=== PATIENT | male | born 2000 | race Caucasian/White ===

== ENCOUNTER 2023-09-18 15:11 | Emergency (ER) | payer BC, SELFPAY ==
[2023-09-18 15:07] VITALS: BP 157/100; PULSE 120; RESP 20; TEMP 36.7; O2SAT 97; BMI 30.5
--- NOTE | 2023-09-18 15:11 | CT_ITS ---
PROCEDURE INFORMATION: Exam: CTA Chest With Contrast Exam date and time: 09/18/2023 5:20 PM Age: 23 years old Clinical indication: Pain; Other: Cp; Additional info: Forceful vomiting, concern for esophageal inj, cp TECHNIQUE: Imaging protocol: Computed tomographic angiography of the chest with contrast. Exam focused on the arteries. 3D rendering (Not supervised by radiologist): MIP and/or 3D reconstructed images were created by the technologist. Radiation optimization: All CT scans at this facility use at least one of these dose optimization techniques: automated exposure control; mA and/or kV adjustment per patient size (includes targeted exams where dose is matched to clinical indication); or iterative reconstruction. Contrast material: ISOVUE 370; Contrast volume: 70 ml; Contrast route: INTRAVENOUS (IV); REPORTING DATA: Count of CT and Cardiac NM exams in prior 12 months: This patient has received 0 known CTs and 0 known cardiac nuclear medicine studies in the 12 months prior to the current study. COMPARISON: CT ABDOMEN PELVIS W CON 09/18/2023 5:20 PM FINDINGS: Pulmonary arteries: No evidence of pulmonary embolism. Aorta: Aorta is normal in caliber. Lungs: No evidence of acute airspace consolidation. No pulmonary edema. Pleural spaces: No pneumothorax. No pleural effusion. Heart: No cardiomegaly. No significant pericardial effusion. Mediastinal space: Distal esophageal wall thickening consistent with gastroesophageal reflux esophagitis. No evidence of mediastinal hematoma or mediastinal free air. Lymph nodes: No enlarged lymph nodes by CT criteria. Bones/joints: No acute osseous abnormality. Soft tissues: Unremarkable. IMPRESSION: Distal esophageal wall thickening consistent with gastroesophageal reflux esophagitis. Evaluation for esophageal wall tear or perforation is limited without oral contrast present. If further imaging is desired using oral contrast material, Omnipaque diluted in saline is the safest option in case of potential esophageal leak or aspiration.
--- NOTE | 2023-09-18 15:14 | ECG_ITS ---
APPROVED REPORT Exam: Resting ECG HR:107 bpm ECG Measurements Heart Rate 107 AXES KS 156 P 71 QRSd 98 QRS 73 QT 335 T 48 QTc 398 Conclusion SINUS TACHYCARDIA ABNORMAL RHYTHM ECG UNCONFIRMED REPORT Electronically signed by : Cm Ortega MD 09/18/2023 17:28:33
[2023-09-18 15:20] LABS: Basophils % 0.2 % (0.1-2.0); Eosinophils # 0.1 K/mm3 (0.0-0.4); Eosinophils % 0.5 % (0.1-12.0); Hematocrit 45.2 % (42.0-52.0); Hemoglobin 16.2 g/dL (14.1-18.0); Lymphocytes # 1.1 K/mm3 (0.7-4.5); Lymphocytes % 7.4 % (10-50); Mean Corpuscular HGB Conc 35.9 g/dL (31.8-35.4); Mean Corpuscular Hemoglobin 34.3 pg (27.0-31.2); Mean Corpuscular Volume 95.7 fl (80-94); Mean Platelet Volume 7.6 fl (7.4-10.4); Monocytes # 0.6 K/mm3 (0.1-1.0); Monocytes % 4.1 % (1.7-9.3); Neutrophils # 12.9 K/mm3 (1.8-7.8); Neutrophils % 87.8 % (37.0-80.0); Platelet Count 244 K/mm3 (142-424); Red Blood Count 4.72 M/mm3 (4.60-6.20); Red Cell Distribution Width 13.3 % (11.5-17.5); White Blood Count 14.7 K/mm3 (4.8-10.8)
--- NOTE | 2023-09-18 15:20 | HMH.EDGENADL ---
Discharge Plan Disposition Patient Disposition: Home, Self-Care Condition: Good Prescriptions Prescriptions: New pantoprazole 40 mg tablet,delayed release (DR/EC) 40 mg PO DAILY Qty: 30 0RF ondansetron 4 mg tablet,disintegrating 4 mg PO Q8H PRN (Reason: nausea and vomiting) 5 Days Qty: 12 0RF chlordiazepoxide HCl 25 mg capsule See Rx Instructions .ROUTE .COMPLEX Qty: 15 0RF Rx Instructions: 25 mg orally; Day 1 50mg q6h; Day 2 25mg q6h; Day 3 25mg q12h; Day 4 25mg at night (Rx fifteen 25mg tabs) Referrals Follow up/Referrals: Naty Shelton MD [Primary Care Provider] - See instructions Activity Restrictions/Add. Instructions Additional Instructions/Restrictions: You were evaluated in the emergency department today. We advised that you stay in the hospital, however since you are going home, we sent in prescriptions for you to take. Please pickling grader the prescriptions and take them as prescribed. Return to the emergency department for new or worsening symptoms. Follow-up with your primary care provider right away. Clinical Impressions Clinical Impression: Alcohol withdrawal, Esophagitis Instructions Patient Instructions: DI for Alcohol Use Disorder, DI for Esophagitis Discharge ED Provider: Vale [facility] HPI General Chief complaint: Alcohol Stated complaint: ABD pain Time Seen by Provider: 09/18/23 15:15 History of Present Illness HPI narrative: This patient is a 23-year-old male with a history of chronic alcohol abuse presenting to the emergency department for evaluation with concern for vomiting, chest pain, and alcohol withdrawals. Patient reports that he had been on a 4-day naik in which he had been drinking heavily every day. He states he had previously been on Vivitrol and not drinking. He notes he started vomiting around 2:00 this morning, and the vomiting was very forceful and painful. He notes an initial episode of hematemesis, but notes his emesis has been nonbloody and nonbilious since. He complains of pain with swallowing as well as chest pain. He states it hurts to take a deep breath. He also complains of shakiness, anxiety, diaphoresis, and concerns for alcohol withdrawal. Patient arrived by EMS, who noted that the patient received 500 cc of IV fluids in route. Related Data Previous Rx's Medication Instructions Recorded chlordiazepoxide HCl 25 mg capsule See Rx Instructions .Route 09/18/23 .COMPLEX #15 caps ondansetron 4 mg disintegrating 4 mg PO Q8H PRN nausea and 09/18/23 tablet vomiting 5 days #12 tabs pantoprazole 40 mg tablet,delayed 40 mg PO DAILY #30 tabs 09/18/23 release Allergies Allergy/AdvReac Type Severity Reaction Status Date / Time No Known Allergies Allergy Verified 09/18/23 15:15 [facility] Disclaimer: The information contained in this section may have been updated after the patient was seen, as this information can be updated by other users. Social History (Updated 09/18/23 @ 15:24 by Patricia Valero RN) Smoking Status: Current every day smoker tobacco type: cigarettes alcohol intake: current substance use type: other current occupational status: employed Travel in the last 8 weeks: None ROS Obtained: Yes All systems reviewed & no additional complaints except as documented Physical Exam General General appearance: alert, in no apparent distress and anxious Comment: Anxious appearing, jittery, and tachycardic Head Head exam: atraumatic and normocephalic Eye Eye exam: Present normal appearance, PERRL and EOMI ENT ENT exam: Present mucous membranes dry and normal external ear exam Neck Neck exam: Present normal inspection, full ROM and trachea midline; Absent tenderness or meningismus Chest Chest inspection: Present normal inspection, symmetric chest wall rise and other (No palpable crepitus); Absent tenderness Respiratory Respiratory exam: Present normal lung sounds bilaterally and other (Mild tachy
[2023-09-18 15:22] LABS: MANUAL DIFFERENTIAL MANUAL DIFFERENTIAL (MANUAL DIFF)
[2023-09-18 15:29] LABS: INR 1.07 (0.9-1.1); Prothrombin Time 11.5 seconds (10.1-12.5)
[2023-09-18 15:30] VITALS: BP 152/92; PULSE 112; RESP 11; O2SAT 97
[2023-09-18 15:31] LABS: Lymphocytes % 7 % (10-50); Monocytes % 3 % (2-9); Neutrophils % 90 % (42-76); Platelet Estimate Normal; RBC Morphology Normal; Total Cells Counted 100
[2023-09-18 15:48] LABS: Alanine Aminotransferase 44 U/L (12-78); Albumin Level 4.7 g/dl (3.5-5.0); Albumin/Globulin Ratio 1.5 (1.1-1.8); Alkaline Phosphatase 90 U/L (38-126); Anion Gap 17.8 mEq/L (5-15); Aspartate Amino Transferase 51 U/L (17-59); Bilirubin,Total 0.8 mg/dl (0.2-1.3); Blood Urea Nitrogen 17 mg/dl (9-20); Carbon Dioxide 22 mmol/L (22.0-30.0); Chloride 104 mmol/L (98-107); Creatinine Clearance Estimated 183 mL/min (50-200); Estimated Glomerular Filt Rate 104 ml/min (>60); GFR (African American) 125 ML/MIN (>60); Globulin 3.2 g/dL (1.3-3.2); Glucose 107 mg/dl (74-100); Lipase 47 U/L (23-300); Potassium 3.8 mmoL/L (3.5-5.1); Sodium 140 mmol/L (136-145); Total Protein,Serum 7.9 g/dl (6.3-8.2)
[2023-09-18 16:00] VITALS: BP 148/89; PULSE 103; RESP 14; O2SAT 96
[2023-09-18 16:02] LABS: Ethyl Alcohol < 10 mg/dl (0-10); Lactic Acid 2.4 mmol/L (0.7-2.1); Troponin I < 0.01 ng/ml (0.00-0.034)
--- NOTE | 2023-09-18 16:09 | CT_ITS ---
PROCEDURE INFORMATION: Exam: CT Abdomen And Pelvis With Contrast Exam date and time: 09/18/2023 5:20 PM Age: 23 years old Clinical indication: Abdominal pain; Generalized; Additional info: Abd pain, vomiting TECHNIQUE: Imaging protocol: Computed tomography of the abdomen and pelvis with contrast. Radiation optimization: All CT scans at this facility use at least one of these dose optimization techniques: automated exposure control; mA and/or kV adjustment per patient size (includes targeted exams where dose is matched to clinical indication); or iterative reconstruction. Contrast material: ISOVUE 370; Contrast volume: 70 ml; Contrast route: IV; REPORTING DATA: Count of CT and Cardiac NM exams in prior 12 months: This patient has received 0 known CTs and 0 known cardiac nuclear medicine studies in the 12 months prior to the current study. COMPARISON: CT ANGIO CHEST PE PROTOCOL 09/18/2023 5:20 PM FINDINGS: Liver: Fatty liver. Gallbladder and bile ducts: Hyperattenuating material in the dependent portion of the gallbladder compatible with biliary sludge vs non-calcified gallstones. No pericholecystic inflammatory changes. No intra- or extra-hepatic biliary ductal dilation. Pancreas: Unremarkable. Spleen: Unremarkable. Adrenal glands: Unremarkable. Kidneys and ureters: No renal or ureteral stones. No hydronephrosis. Stomach and bowel: Unremarkable. Appendix: Appendix is visualized and is normal. Intraperitoneal space: No free fluid. No pneumoperitoneum. Vasculature: Unremarkable. Lymph nodes: Unremarkable. Urinary bladder: Unremarkable. Reproductive: Unremarkable. Bones/joints: No evidence of acute osseous abnormality. Soft tissues: Unremarkable. IMPRESSION: 1. No acute findings in the abdomen or pelvis. 2. Gallbladder contains biliary sludge vs non-calcified gallstones. No evidence of acute cholecystitis. 3. Fatty liver.
[2023-09-18 16:30] VITALS: BP 163/95; PULSE 103; RESP 19; O2SAT 97
[2023-09-18 17:00] VITALS: BP 134/79; PULSE 115; RESP 18; O2SAT 94
--- NOTE | 2023-09-18 18:01 | PC.NURSE ---
pt given starry to drink for PO challenge
[2023-09-18 19:16] LABS: Reflex Lactic Add Lactic Reflex
[2023-09-18 19:19] VITALS: BP 135/85; PULSE 103; RESP 17; TEMP 37.2; O2SAT 96
== END 2023-09-18 19:30 | disposition home or self-care (01) ==
PROVIDERS: Emergency Provider Emergency Medicine; PCP Family Medicine
DX: R07.1 Chest pain on breathing (principal); F10.131 Alcohol abuse with withdrawal delirium; K20.90 Esophagitis, unspecified without bleeding; R00.0 Tachycardia, unspecified; R11.10 Vomiting, unspecified; F17.210 Nicotine dependence, cigarettes, uncomplicated
CPT/HCPCS: 71275; 74177; 80053; 83605; 83690; 84484; 85007; 85025; 85610; 93005; 96361; 96374; 96375; 99285; J2405; Q9967

== ENCOUNTER 2023-09-26 22:55 | Emergency (ER) | payer BC, SELFPAY ==
[2023-09-26 22:55] VITALS: BP 148/102; PULSE 106; RESP 16; TEMP 36.8; O2SAT 96; BMI 31.2
[2023-09-26 23:14] VITALS: PULSE 103; O2SAT 95
[2023-09-26 23:15] VITALS: PULSE 102; O2SAT 95
[2023-09-26 23:16] VITALS: BP 132/83; PULSE 101; PULSE 97; RESP 18; O2SAT 93; O2SAT 95
[2023-09-26 23:30] VITALS: BP 134/80; PULSE 100; PULSE 93; RESP 17; TEMP 36.8; O2SAT 95
--- NOTE | 2023-09-26 23:39 | ECG_ITS ---
APPROVED REPORT Exam: Resting ECG HR:103 bpm ECG Measurements Heart Rate 103 AXES PA 157 P 72 QRSd 97 QRS 73 QT 323 T 45 QTc 383 Conclusion SINUS TACHYCARDIA ABNORMAL RHYTHM ECG UNCONFIRMED REPORT Electronically signed by : Cm Ortega MD 09/27/2023 11:42:38
[2023-09-26 23:45] VITALS: BP 133/81; PULSE 96; RESP 21; TEMP 36.8; O2SAT 95
[2023-09-26 23:50] LABS: Chloride 105 mmol/L (98-107); Potassium 3.9 mmoL/L (3.5-5.1); Sodium 139 mmol/L (136-145)
[2023-09-26 23:52] LABS: Alanine Aminotransferase 38 U/L (12-78); Alkaline Phosphatase 81 U/L (38-126); Aspartate Amino Transferase 60 U/L (17-59); Basophils # 0.1 K/mm3 (0-0.2); Basophils % 0.6 % (0.1-2.0); Bilirubin,Total 0.4 mg/dl (0.2-1.3); Blood Urea Nitrogen 14 mg/dl (9-20); Creatinine Clearance Estimated 173 mL/min (50-200); Eosinophils # 0.1 K/mm3 (0.0-0.4); Eosinophils % 1.6 % (0.1-12.0); Estimated Glomerular Filt Rate 92 ml/min (>60); GFR (African American) 111 ML/MIN (>60); Hematocrit 44.6 % (42.0-52.0); Hemoglobin 15.5 g/dL (14.1-18.0); Lymphocytes # 2.3 K/mm3 (0.7-4.5); Lymphocytes % 27.1 % (10-50); Mean Corpuscular HGB Conc 34.8 g/dL (31.8-35.4); Mean Corpuscular Hemoglobin 32.8 pg (27.0-31.2); Mean Corpuscular Volume 94.4 fl (80-94); Mean Platelet Volume 7.8 fl (7.4-10.4); Monocytes # 0.5 K/mm3 (0.1-1.0); Monocytes % 5.5 % (1.7-9.3); Neutrophils # 5.4 K/mm3 (1.8-7.8); Neutrophils % 65.3 % (37.0-80.0); Platelet Count 226 K/mm3 (142-424); Red Blood Count 4.72 M/mm3 (4.60-6.20); Red Cell Distribution Width 13.2 % (11.5-17.5); White Blood Count 8.3 K/mm3 (4.8-10.8)
[2023-09-26 23:53] LABS: Acetaminophen < 10 ug/ml (10-30); Albumin Level 4.5 g/dl (3.5-5.0); Albumin/Globulin Ratio 1.6 (1.1-1.8); Anion Gap 10.9 mEq/L (5-15); Calcium 8.6 mg/dl (8.4-10.2); Carbon Dioxide 27 mmol/L (22.0-30.0); Globulin 2.9 g/dL (1.3-3.2); Glucose 107 mg/dl (74-100); Lipase 113 U/L (23-300); Salicylate < 1.0 mg/dL (2.0-20.0); Total Protein,Serum 7.4 g/dl (6.3-8.2)
[2023-09-26 23:55] LABS: INR 1.01 (0.9-1.1); Prothrombin Time 10.9 seconds (10.1-12.5)
[2023-09-26 23:57] LABS: Ethyl Alcohol 207 mg/dl (0-10)
[2023-09-27] VITALS (30 sets, daily range): BP systolic 109–148; BP diastolic 54–97; PULSE 94–116; RESP 13–20; TEMP 36.7–37; O2SAT 91–97
--- NOTE | 2023-09-27 00:06 | HMH.EDGENADL ---
Discharge Plan Disposition Patient Disposition: Home, Self-Care Condition: Good Prescriptions Prescriptions: No Action pantoprazole 40 mg tablet,delayed release (DR/EC) 40 mg PO DAILY Qty: 30 0RF ondansetron 4 mg tablet,disintegrating 4 mg PO Q8H PRN (Reason: nausea and vomiting) 5 Days Qty: 12 0RF chlordiazepoxide HCl 25 mg capsule See Rx Instructions .ROUTE .COMPLEX Qty: 15 0RF Rx Instructions: 25 mg orally; Day 1 50mg q6h; Day 2 25mg q6h; Day 3 25mg q12h; Day 4 25mg at night (Rx fifteen 25mg tabs) Referrals Follow up/Referrals: Provider,Referral, MD [Primary Care Provider] - See instructions Activity Restrictions/Add. Instructions Additional Instructions/Restrictions: You were evaluated in the emergency department today. Please follow-up with your primary care provider. Use the resources we have provided to you to help follow-up for your alcohol abuse. Return to the emergency department for new or worsening symptoms. Clinical Impressions Clinical Impression: Alcohol intoxication, Alcohol abuse, Diarrhea Instructions Patient Instructions: Alcohol Use Disorder Discharge ED Provider: Vale Hays [facility] HPI General Chief complaint: Psychiatric Symptoms Stated complaint: n/v, suicidal ideations, alcohol use Time Seen by Provider: 09/26/23 23:05 Mode of Arrival: EMS Source of Information: Patient Limitations: No Limitations Description of Symptoms (Recalled from ER Triage Doc. by RN): pt requests help to stop using alcohol, reports everyday use since the age of 18, can drink up to 30 shooters per day, pt also reports several days of lower abd pain and diarrhea, reports only drinking 4 beers today. Per ems pt had stated he had SI thoughts, after speaking with pt, he adimately states he is not suicidal now but had thoughts this am but no plan. History of Present Illness HPI narrative: This patient is a 23-year-old male presenting to the emergency department by EMS after being brought in for public intoxication. According to the patient, he has had issues with alcohol abuse for the last 4 years. He states that he has been drinking daily despite multiple attempts at intervention, including inpatient rehab, Vivitrol shots, and recent evaluation here and prescription for Librium taper. He notes that he has had a few days of lower abdominal cramping and diarrhea as well. He notes that he is only had 4 beers today. He states that he wants to quit drinking, but the cravings are to strong. Given this, he continues to drink. I asked him what it would take to get him to stop drinking, and how he felt that we could help him. He states that he just needs to not be responsible for taking care of his grandmother anymore. Patient denies suicidal ideation, homicidal ideation, hallucinations, or other concerns. He denies any anxiety, tremulousness, or other issues that would suggest alcohol withdrawals. He has noticed that the patient was stable in route with no concerns or complaints specifically. Related Data Previous Rx's Medication Instructions Recorded chlordiazepoxide HCl 25 mg capsule See Rx Instructions .Route 09/18/23 .COMPLEX #15 caps ondansetron 4 mg disintegrating 4 mg PO Q8H PRN nausea and 09/18/23 tablet vomiting 5 days #12 tabs pantoprazole 40 mg tablet,delayed 40 mg PO DAILY #30 tabs 09/18/23 release Allergies Allergy/AdvReac Type Severity Reaction Status Date / Time No Known Allergies Allergy Verified 09/18/23 15:15 [facility] Disclaimer: The information contained in this section may have been updated after the patient was seen, as this information can be updated by other users. Social History Smoking Status: Current every day smoker tobacco type: cigarettes alcohol intake: current substance use type: other current occupational status: employed Travel in the last 8 weeks: None ROS Obtained:
--- NOTE | 2023-09-27 01:26 | PC.NURSE ---
Patient is pending discharge at this time. Provider Dr. Hays, does not feel that patient is a current danger to himself or others. One on one observation is being discontinued.
--- NOTE | 2023-09-27 01:41 | PC.NURSE ---
Attempted to contact patient's mother per patient request. Luann [phone]. No answer x 2, left voicemail for return call.
--- NOTE | 2023-09-27 01:55 | PC.NURSE ---
Patient reports nausea at this time. Provider notified.
--- NOTE | 2023-09-27 04:54 | PC.NURSE ---
Mother returned called to check on patient status, patient verbally agreed to allow nursing staff to update mother. Spoke at length with mother about patient status and about resources that would be sent with patient information at discharge. Patient's mother states that she will be able to have someone come pick him up around 0700. Updated patient at this time.
--- NOTE | 2023-09-27 06:59 | PC.NURSE ---
report given to shoaib orellana
--- NOTE | 2023-09-27 07:15 | PC.NURSE ---
Breakfast tray received for pt. He did not want his tray at this time.
--- NOTE | 2023-09-27 07:28 | PC.NURSE ---
Rounded on pt. Advised he was nauseous and his stomach was hurting. Dr. Hays and Mario Carmona RN notified.
--- NOTE | 2023-09-27 07:36 | PC.NURSE ---
Spoke with pt mother she advised, I'm at work right now and won't be able to come get him until later. Around 9. Updated pt at this time. Pt advised he would like to speak with the doctor.
--- NOTE | 2023-09-27 07:37 | PC.NURSE ---
Dr. Armstrong at BS to speak with pt
--- NOTE | 2023-09-27 08:19 | PC.NURSE ---
Pt medicated per MAR. urine sample submitted to lab for UDS. Pt reports he fell asleep briefly and woke up screaming, I'm not sure if you heard me . Dc SRNA 1 to 1 sitter and I at bedside. Pt has been awake and talking to us regarding his trouble sleeping.
[2023-09-27 08:21] LABS: Magnesium 1.9 mg/dl (1.6-2.3)
[2023-09-27 08:22] LABS: Ethyl Alcohol 31 mg/dl (0-10)
[2023-09-27 08:38] LABS: Barbiturates Screen,Urine Negative ng/ml (<200)
[2023-09-27 08:39] LABS: Benzodiazepines Screen,Urine Positive ng/ml (<200)
[2023-09-27 08:40] LABS: Amphetamine/Metha Screen,Urine Negative ng/ml (<1000); Cannabinoid Screen,Urine Positive ng/ml (<50)
[2023-09-27 08:41] LABS: Cocaine Screen,Urine Negative ng/ml (<300)
[2023-09-27 08:42] LABS: Methadone Screen,Urine Negative ng/ml (<300); Opiate Screen,Urine Negative ng/ml (<300)
[2023-09-27 08:43] LABS: Phencyclidine Screen,Urine Negative ng/ml (<25)
--- NOTE | 2023-09-27 08:53 | PC.NURSE ---
Spoke with Rita at [facility]. She advised to fax pt information for her to review and then she would give us a call back. Pt information faxed to [phone]
--- NOTE | 2023-09-27 08:59 | PC.NURSE ---
Received fax confirmation that pt information went through.
--- NOTE | 2023-09-27 09:11 | PC.NURSE ---
Rounded on pt. No needs or complaints voiced. Pt resting with eyes close. Respirations even and unlabored. Staff remains at [facility] for .
--- NOTE | 2023-09-27 09:34 | PC.NURSE ---
Pt on phone speaking with Rita at [facility]
--- NOTE | 2023-09-27 10:20 | PC.NURSE ---
Pt mother at at this time. Pt mother updated on current POC and that we are waiting for call back from [facility]. Pt states, I would really rather go home Pt mother voiced to pt that she wants him to get help. Advised pt and mother I would have Dr. Armstrong come in to speak with them.
--- NOTE | 2023-09-27 10:27 | PC.NURSE ---
Dr. Armstrong at to speak with pt and pt mother
--- NOTE | 2023-09-27 10:37 | PC.NURSE ---
Rita from [facility] called back to advise pt had been accepted to [facility]
--- NOTE | 2023-09-27 11:07 | PC.NURSE ---
Called report to [facility]
--- NOTE | 2023-09-27 12:00 | PC.NURSE ---
Pt's mother called to give SSN of pt to [facility] staff. Registration notified of this # and [facility] notified as well of this number.
--- NOTE | 2023-09-27 12:01 | PC.NURSE ---
EMS here to transport pt to [facility]. Ana @ [facility] was notified pt would be leaving shortly.
== END 2023-09-27 12:10 | disposition home or self-care (01) ==
PROVIDERS: Emergency Medicine; Emergency Provider Emergency Medicine
DX: F10.129 Alcohol abuse with intoxication, unspecified (principal); R00.0 Tachycardia, unspecified; R45.851 Suicidal ideations; R19.7 Diarrhea, unspecified; R11.10 Vomiting, unspecified; F17.210 Nicotine dependence, cigarettes, uncomplicated
CPT/HCPCS: 80053; 80305; 80329; 83690; 83735; 85025; 85610; 86140; 93005; 96365; 96366; 96375; 99285